=== PATIENT | male | born 1990 | race Two or more races ===

== ENCOUNTER 2020-03-06 21:21 | Emergency (ER) | payer OTHER ==
[~2020-03-06] VITALS: Ht 170.2 cm; Wt 72.6 kg
[2020-03-06 21:38] VITALS: BP 121/63
[2020-03-06] MEDS ORDERED: IBUPROFEN600 M1 ORAL (22:31)
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
[2020-03-06 22:58] VITALS: BP_SYST 121; BP_SYST 126; BP_DIAS 63; BP_DIAS 75
--- NOTE | 2020-03-06 23:31 | Diagnostic Imaging Report ---
CT head without contrast History: Pain, trauma Technique: Axial noncontrast head CT. Coronal, sagittal reformatted images. CTDI is 53.4 mGy and DLP is 992.1 mGy-cm. Technique more: One or more of the following dose reduction techniques were used: automated exposure control, adjustment of the mA and/or kV according to patient size, use of iterative reconstruction technique. Comparison: None FINDINGS: No intracranial hemorrhage, abnormal intra- or extra-axial collections or parenchymal lesions are seen. The shape and configuration of the cortical sulci, basal cisterns and ventricles are within normal limits. The pool-white differentiation is preserved. No evidence of mass effect, midline shift, or edema. The osseous structures are unremarkable. The visualized portions of the paranasal sinuses are clear. IMPRESSION: Normal non-contrast CT scan of the head.
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
== END 2020-03-06 22:58 | disposition home or self-care (01) ==
LOC: EMR 22:05
DX: S16.1XXA Strain of muscle, fascia and tendon at neck level, initial encounter (principal); S39.012A Strain of muscle, fascia and tendon of lower back, initial encounter; V43.62XA Car passenger injured in collision with other type car in traffic accident, initial encounter; Y92.410 Unspecified street and highway as the place of occurrence of the external cause
CPT/HCPCS: 70450; 72040; 99284